=== PATIENT | female | born 1955 | race Caucasian/White ===

== ENCOUNTER → 2016-04-28 | Outpatient (CLI) | payer OTHER ==
[~2016-04-28] MED LIST: ADVIL200 MG PO; ALEVE220 MG PO; AMOXICILLIN500 M1 PO; ASPIRIN (CHILDR81 MG PO; CELEBREX200 MG PO; CENTRAL-VITE S1 EACH PO; CITRACAL950 MG PO; COLACE100 MG PO; CYMBALTA60 MG PO; DEXILANT60 MG PO; DILAUDID 2MG(HYD2 MG PO; ESTRACE(ESTRADIO1 MG PO; ESTRADIOL0.5 MG PO; FEOSOL325 MG PO; GLUCOSAMINE &1 EAC1 PO; GLUCOSAMINE-CH1 EA22 PO; HYZAAR 100-251 EACH PO; IMODIUM A-D2 MG PO; IMODIUM2 MG PO; KLONOPIN1 MG PO; LEXAPRO10 MG PO; LOSARTAN-HCTZ1 EAC1 PO; LYRICA 100MG C100 MG PO; MIRALAX17 GM PO; MULTI-DAY VITA1 EACH PO; NEURONTIN600 MG PO; NORCO 5-325 MG1 TAB PO; NORCO 5-325 TA1 EACH PO; PREVACID30 MG PO; PROTONIX40 MG PO; TYLENOL EXTRA500 MG PO; VALIUM10 MG PO; VALIUM5 MG PO; XARELTO10 MG PO
[2016-04-28 11:18] LABS: CALCIUM 9.2 mg/dL (8.5-10.5); CREATININE 1.3 mg/dL (0.5-1.1)
== END | disposition disaster alternative care site (69) ==
LOC: LGSOS 11:04
PROVIDERS: Internal Medicine Interventional Cardiology
DX: R06.02 Shortness of breath (principal)

== ENCOUNTER → 2016-06-30 | Outpatient (CLI) | payer OTHER | END | disposition disaster alternative care site (69) | LOC: GBCOE 06:53 | DX: Z12.31 Encounter for screening mammogram for malignant neoplasm of breast (principal); N63 Unspecified lump in breast | CPT/HCPCS: G0202 ==

== ENCOUNTER → 2016-07-16 | Outpatient (CLI) | payer OTHER | END | disposition disaster alternative care site (69) | LOC: GRAD 07-15 11:30 | DX: N63 Unspecified lump in breast (principal) ==